=== PATIENT | male | born 1990 | race Hispanic/Latino ===

== ENCOUNTER 2020-04-28 14:46 | Emergency (ER) | payer OTHER ==
[~2020-04-28] VITALS: Ht 180.3 cm; Wt 93.0 kg
[~2020-04-28 14:46] MED LIST: CYCLOBENZAPRINE5 MG PO; NAPROXEN500 MG PO
[2020-04-28] MEDS ORDERED: EMERGEN-C 1,01000 MG PO (15:12)
--- NOTE | 2020-04-28 17:14 | EKG ---
[facility] [address] [facility] [place], [place] [address] Signed Sinus tachycardia Nonspecific T wave abnormality Abnormal ECG No previous ECGs available Confirmed by EMILY TAPIA MD [id number] on 04/28/2020 5:13:51 PM Electronically Signed By: EMILY TAPIA MD 04/28/20 1714 PATIENT NAME: VERITO NATION JR Electrocardiogram DATE OF : [birth year] PHYSICIAN: EMILY TAPIA MD REPORT #: [id number] REPORT IS CONFIDENTIAL AND NOT TO BE RELEASED WITHOUT AUTHORIZATION
--- NOTE | 2020-04-30 10:03 | PATH ---
[facility] [address] [place], [place] [address] Signed ORDERING PHYSICIAN: Yousif Locke MD PATIENT NAME: VERITO NATION JR GENDER: Lore : 1990 Prior History: No cases found. SPECIMEN(S): No Source Given MOLECULAR PATHOLOGY RESULTS: SARS-CoV-2 Not Detected ADDITIONAL NOTES.: The [employer] Fusion SARS-CoV-2 Assay is a multiplex real-time PCR (RT-PCR) in vitro diagnostic test intended for the qualitative detection of RNA from SARS-CoV-2 from individuals who meet COVID-19 clinical and/or epidemiological criteria. In general, SARS-CoV-2 RNA can be detected during the acute phase of infection. Positive results indicate the presence of SARS-CoV-2 RNA. Clinical correlation with patient history and other diagnostic information is necessary to determine patient infection status. Positive results do not rule out bacterial infection or co-infection with other viruses. Negative results do not preclude SARS-CoV-2 infection and should not be used as the sole basis for patient management decisions. Negative results must be combined with other clinical observations, patient history, and epidemiological information. The [place] Fusion SARS-CoV-2 Assay is not yet approved or cleared by the [place] FDA. When there are no FDA-approved or cleared tests available, and other criteria are met, FDA can make tests available under an emergency access mechanism called an Emergency Use Authorization (EUA). The EUA for this test is supported by the [place] of Health and Human Service's (HHS's) declaration that circumstances exist to justify the emergency use of in vitro diagnostics for the detection and/or diagnosis of the virus that causes COVID-19. This EUA will remain in effect for the duration of the COVID-19 declaration justifying emergency of IVDs, unless it is terminated or revoked by FDA, after which the test may no longer be used. The [employer] Fusion SARS-CoV-2 Assay is for use only under EUA PATIENT NAME: LIONEL GOSSVERITO JR PATHOLOGY DATE OF : [birth year] REPORT #: [id number] PHYSICIAN: FABIOLA PATHOLOGY PCP: NO PRIMARY CARE PHYSICIAN REPORT IS CONFIDENTIAL AND NOT TO BE RELEASED WITHOUT AUTHORIZATION [facility] [address] [place] [id number] Signed in laboratories certified under the Clinical Laboratory Improvement Amendments of 1988 (CLIA) to perform high complexity tests. [facility] is certified under CLIA to perform high complexity clinical laboratory testing. PERFORMING LABORATORY.: Molecular testing was performed by [facility] [place] [address] (Janitor Custodian: Og Hein D.O.; CLIA#: [id number]) Diagnostician: System Interface Pathologist Electronically Signed 04/30/2020 Copies: ~ PATIENT NAME: LIONEL GOSSVERITO JR PATHOLOGY DATE OF : [birth year] REPORT #: [id number] PHYSICIAN: FABIOLA PHILLIP PCP: NO PRIMARY CARE PHYSICIAN REPORT IS CONFIDENTIAL AND NOT TO BE RELEASED WITHOUT AUTHORIZATION
== END 2020-04-28 18:12 | disposition home or self-care (01) ==
LOC: ED 14:46
DX: J06.9 Acute upper respiratory infection, unspecified (principal); R00.0 Tachycardia, unspecified; Z20.828 Contact with and (suspected) exposure to other viral communicable diseases; Z79.899 Other long term (current) drug therapy
CPT/HCPCS: 71045; 80053; 83735; 84484; 85025; 85379; 93005; 93010; 99285-25; C9803; J7030